=== PATIENT | male | born 1970 | race Caucasian/White ===

== ENCOUNTER 2017-03-03 13:26 | Emergency (ER) | payer BC, OTHER ==
[~2017-03-03] VITALS: Ht 172.7 cm; Wt 138.3 kg
[~2017-03-03 13:26] MED LIST: IBUP200C PO
[2017-03-03] MEDS ORDERED: ONDANSETRON 2MG/ML, 2ML ONE (13:43)
[2017-03-03] MEDS ORDERED: HYDROmorphone 1 MG/ML, 1ML ONE (13:43)
[2017-03-03] MEDS ORDERED: KETOROLAC 30 MG/1 ML ONE (13:54)
[2017-03-03] MEDS ORDERED: HYDROmorphone 1 MG/ML, 1ML IV ONE (14:00)
[2017-03-03] MEDS ORDERED: KETOROLAC 30 MG/1 ML IVPush ONE (14:00)
[2017-03-03 14:04] VITALS: BP 127/91
== END 2017-03-03 14:43 | disposition home or self-care (01) ==
LOC: ED 14:20
DX: S43.005A Unspecified dislocation of left shoulder joint, initial encounter (principal); W19.XXXA Unspecified fall, initial encounter; Y93.89 Activity, other specified; Y92.009 Unspecified place in unspecified non-institutional (private) residence as the place of occurrence of the external cause; Y99.8 Other external cause status
CPT/HCPCS: 23650; 73020; 96374; 96375; 99284; J1170; J1885

== ENCOUNTER 2018-12-10 18:42 | Emergency (ER) | payer BC ==
[~2018-12-10 18:42] MED LIST changes: +IBUP-1623 PO; -IBUP200C PO
--- NOTE | 2018-12-10 19:01 | NUR ---
NO ANSWER WHEN CALLED FROM [facility]
--- NOTE | 2018-12-10 19:22 | NUR ---
NIL WHEN CALLED FOR TRIAGE.
--- NOTE | 2018-12-10 19:41 | NUR ---
NIL X 3 WHEN CALLED FOR TRIAGE.
== END 2018-12-10 19:42 | disposition left against medical advice (07) ==
LOC: ED 19:36
DX: M54.5 Low back pain (principal); Z53.21 Procedure and treatment not carried out due to patient leaving prior to being seen by health care provider

== ENCOUNTER 2021-02-17 19:47 | Emergency (ER) | payer BC ==
[~2021-02-17] VITALS: Ht 172.7 cm; Wt 129.6 kg
[2021-02-17] MEDS ORDERED: ONDANSETRON 2MG/ML, 2ML ONE (20:19)
[2021-02-17] MEDS ORDERED: MORPHINE SULFATE 4 MG/ML, 1ML ONE (20:19)
[2021-02-17] MEDS ORDERED: ONDANSETRON 2MG/ML, 2ML IVPush ONE (20:30)
[2021-02-17] MEDS ORDERED: morphine SULFATE 10 MG/ML, 1ML IVPush ONE (21:00)
[2021-02-17 21:06] LABS: BASOPHILS % (AUTO) 0 % (0-1); EOSINOPHILS % (AUTO) 1 % (1-7); LYMPHOCYTES % (AUTO) 18 % (22-44); MEAN CORPUSCULAR HGB CONC 33.5 g/dL (33.2-36.2); MEAN PLATELET VOLUME 10.5 fL (7.4-10.4); MONOCYTES % (AUTO) 6 % (2-9); NEUTROPHILS % (AUTO) 75 % (42-75); PLATELET COUNT 203 x10^3/uL (130-400); RED BLOOD COUNT 4.45 x10^6/uL (4.38-5.82); RED CELL DISTRIBUTION WIDTH 13.4 % (9.4-14.8)
--- NOTE | 2021-02-17 21:11 | NUR ---
REPORT FROM TYLER RUIZ
[2021-02-17 21:15] LABS: ALBUMIN 3.4 g/dL (3.4-5.0); ANION GAP 5 mmol/L (5-15); CALCIUM 8.3 mg/dL (8.5-10.1); CHLORIDE 107 mmol/L (98-107)
[2021-02-17 21:21] LABS: ALANINE AMINOTRANSFERASE 37 U/L (12-78); ALKALINE PHOSPHATASE 60 U/L (45-117); BILIRUBIN,TOTAL 0.4 mg/dL (0.2-1.0); CREATININE 0.77 mg/dL (0.7-1.3); TOTAL PROTEIN 7.5 g/dL (6.4-8.2); TROPONIN I < 0.015 ng/mL (0.000-0.045)
[2021-02-17 21:57] VITALS: BP 158/98
== END 2021-02-17 21:59 | disposition home or self-care (01) ==
LOC: ED 21:50
DX: R07.89 Other chest pain (principal); I10 Essential (primary) hypertension; R11.0 Nausea; R94.31 Abnormal electrocardiogram [ECG] [EKG]
CPT/HCPCS: 36415; 71045; 80053; 83735; 83880; 84484; 85025; 93005; 96374; 96375; 99285; J2270; J2405

== ENCOUNTER 2021-02-18 00:30 | Emergency (ER) | payer BC ==
[2021-02-18 00:35] VITALS: BP 155/99
[2021-02-18] MEDS ORDERED: ONDANSETRON ODT 4 MG ONE (01:24)
[2021-02-18] MEDS ORDERED: OXYcodone/APAP 10/325MG TABLET ONE (01:25)
[2021-02-18] MEDS ORDERED: OXYcodone/APAP 10/325MG TABLET PO ONE (01:30)
[2021-02-18] MEDS ORDERED: ONDANSETRON ODT 8 MG PO ONE (01:30)
[2021-02-18] MEDS ORDERED: ONDANSETRON ODT 8 MG ONE (01:32)
[2021-02-18] MEDS ORDERED: IBUPROFEN 800 MG TABLET ONE (02:23)
[2021-02-18] MEDS ORDERED: IBUPROFEN 800 MG TABLET PO ONE (02:30)
== END 2021-02-18 02:56 | disposition home or self-care (01) ==
LOC: ED 02:47
DX: S06.0X0A Concussion without loss of consciousness, initial encounter (principal); S00.03XA Contusion of scalp, initial encounter; I10 Essential (primary) hypertension; Y04.8XXA Assault by other bodily force, initial encounter; Y93.89 Activity, other specified; Y92.009 Unspecified place in unspecified non-institutional (private) residence as the place of occurrence of the external cause; Y99.8 Other external cause status
CPT/HCPCS: 70450; 99284; Q0162

== ENCOUNTER 2021-03-09 04:38 | Inpatient (IN) | payer BC, OTHER ==
[~2021-03-09] VITALS: Ht 172.7 cm; Wt 136.4 kg
--- NOTE | 2021-03-09 04:44 | NUR ---
EKG IN TRIAGE
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
[2021-03-09] MEDS ORDERED: ASPIRIN 81 MG TABLET CHEW ONE (05:36)
[2021-03-09] MEDS ORDERED: MORPHINE SULFATE 4 MG/ML, 1ML ONE (05:36)
[2021-03-09] MEDS ORDERED: ONDANSETRON 2MG/ML, 2ML ONE (05:36)
[2021-03-09] MEDS: MORPHINE SULFATE 4 MG/ML, 1ML IVPush PRN ×2 (05:42→15:25)
[2021-03-09] MEDS ORDERED: ASPIRIN 81 MG TABLET CHEW PO ONE (06:00)
[2021-03-09] MEDS ORDERED: SODIUM CHLORIDE FLUSH 10ML SYR IVF ONE (06:00)
[2021-03-09] MEDS ORDERED: ONDANSETRON 2MG/ML, 2ML IVPush ONE (06:00)
[2021-03-09] MEDS ORDERED: SODIUM CHLORIDE 0.9% 1,000ML IVBOLUS ONE (06:00)
[2021-03-09 06:21] LABS: BASOPHILS % (AUTO) 0 % (0-1); EOSINOPHILS % (AUTO) 2 % (1-7); LYMPHOCYTES % (AUTO) 22 % (22-44); MEAN CORPUSCULAR HGB CONC 34.1 g/dL (33.2-36.2); MONOCYTES % (AUTO) 8 % (2-9); NEUTROPHILS % (AUTO) 68 % (42-75); PLATELET COUNT 224 x10^3/uL (130-400); RED BLOOD COUNT 4.56 x10^6/uL (4.38-5.82); RED CELL DISTRIBUTION WIDTH 13.5 % (9.4-14.8)
[2021-03-09 06:25] LABS: ALANINE AMINOTRANSFERASE 27 U/L (12-78); ALBUMIN 3.2 g/dL (3.4-5.0); CALCIUM 8.3 mg/dL (8.5-10.1)
[2021-03-09 06:29] LABS: ALKALINE PHOSPHATASE 65 U/L (45-117); ANION GAP 7 mmol/L (5-15); BILIRUBIN,TOTAL 0.4 mg/dL (0.2-1.0); CHLORIDE 106 mmol/L (98-107); TOTAL PROTEIN 7.5 g/dL (6.4-8.2); TROPONIN I < 0.015 ng/mL (0.000-0.045)
--- NOTE | 2021-03-09 06:58 | NUR ---
report to maicol RUIZ
--- NOTE | 2021-03-09 06:58 | NUR ---
REPORT FROM RICHY, ASSUME CARE OF PT AT THIS TIME.
--- NOTE | 2021-03-09 07:29 | NUR ---
PT AWARE OF ADMIT. PT STATES CP RESOLVED, NOW C/O LOPES RATED /10. PT TOOK 600MG IBUPROFEN PRIOR TO ARRIVAL. REQUEST FOR TYLENOL TO ERP.
[2021-03-09] MEDS ORDERED: ONDANSETRON 2MG/ML, 2ML IVPush PRN (08:00)
[2021-03-09] MEDS ORDERED: POTASSIUM CHLORIDE 20 MEQ TAB.ER.PRT PO ONE (08:00)
[2021-03-09] MEDS ORDERED: CARVEDILOL 3.125 MG TABLET PO SCH (08:00)
[2021-03-09] MEDS ORDERED: ONDANSETRON ODT 4 MG PO PRN (08:00)
[2021-03-09 08:30] LABS: TROPONIN I < 0.015 ng/mL (0.000-0.045)
[2021-03-09 09:30] VITALS: BP 147/101
[2021-03-09] MEDS: HEPARIN 5,000 UNITS/ML, 1ML SQ SCH ×2 (09:42→18:22)
[2021-03-09] MEDS: NS + 20MEQ KCL 1,000 ML IV SCH (11:58)
[2021-03-09 15:00] VITALS: BP 161/101
[2021-03-09 15:20] LABS: TROPONIN I < 0.015 ng/mL (0.000-0.045)
[2021-03-09] MEDS ORDERED: CARVEDILOL 3.125 MG TABLET PO ONE (15:30)
[2021-03-09] MEDS ORDERED: CARV6.2512 PO (15:34)
[2021-03-09] MEDS: IBUPROFEN 200 MG TABLET PO PRN (15:56)
[2021-03-09] MEDS: CARVEDILOL 6.25 MG TABLET PO SCH (18:22)
[2021-03-09 19:07] VITALS: BP 138/93
[2021-03-09] MEDS: ACETAMINOPHEN 325 MG TABLET PO PRN (20:48)
[2021-03-09] MEDS: KETOROLAC 30 MG/1 ML IV PRN (20:48)
[2021-03-10] VITALS (7 sets, daily range): BP systolic 113–154; BP diastolic 73–100
[2021-03-10] MEDS: IBUPROFEN 200 MG TABLET PO PRN (00:51)
[2021-03-10] MEDS: HEPARIN 5,000 UNITS/ML, 1ML SQ SCH ×4 (00:51→23:39)
[2021-03-10] MEDS: NS + 20MEQ KCL 1,000 ML IV SCH ×2 (03:27→13:37)
[2021-03-10 05:41] LABS: BASOPHILS % (AUTO) 1 % (0-1); EOSINOPHILS % (AUTO) 5 % (1-7); LYMPHOCYTES % (AUTO) 32 % (22-44); MEAN CORPUSCULAR HEMOGLOBIN 30.9 pg (27.5-34.5); MEAN CORPUSCULAR HGB CONC 33.5 g/dL (33.2-36.2); MEAN PLATELET VOLUME 10.1 fL (7.4-10.4); MONOCYTES % (AUTO) 8 % (2-9); NEUTROPHILS % (AUTO) 55 % (42-75); PLATELET COUNT 211 x10^3/uL (130-400); RED BLOOD COUNT 4.34 x10^6/uL (4.38-5.82); RED CELL DISTRIBUTION WIDTH 13.7 % (9.4-14.8)
[2021-03-10 05:52] LABS: ANION GAP 5 mmol/L (5-15); CALCIUM 7.6 mg/dL (8.5-10.1); CHLORIDE 107 mmol/L (98-107); CHOLESTEROL, TOTAL 150 mg/dL (140-239); CREATININE 0.79 mg/dL (0.7-1.3); TRIGLYCERIDES 115 mg/dL (50-200); VLDL CHOLESTEROL 23 mg/dL (0-25)
[2021-03-10 05:54] LABS: HDL CHOL % 20 % (26-37); HDL CHOLESTEROL (DIRECT) 30 mg/dL (40-60); LDL CHOLESTEROL,CALCULATED 97 mg/dL (54-169); LDL/HDL RATIO 3.2 (0.5-3.0)
[2021-03-10] MEDS: KETOROLAC 30 MG/1 ML IV PRN ×3 (06:06→22:24)
[2021-03-10] MEDS: CARVEDILOL 6.25 MG TABLET PO SCH ×2 (06:06→18:02)
[2021-03-10] MEDS: ASPIRIN 325 MG TABLET PO SCH (06:06)
[2021-03-10] MEDS: ACETAMINOPHEN 325 MG TABLET PO PRN ×3 (08:28→23:39)
[2021-03-10] MEDS: LISINOPRIL 20 MG TABLET PO SCH (13:37)
[2021-03-11 01:29] VITALS: BP 111/69
[2021-03-11] MEDS: NS + 20MEQ KCL 1,000 ML IV SCH ×2 (01:29→17:34)
[2021-03-11] MEDS: ACETAMINOPHEN 325 MG TABLET PO PRN (06:09)
[2021-03-11] MEDS: ASPIRIN 325 MG TABLET PO SCH (06:09)
[2021-03-11] MEDS: CARVEDILOL 6.25 MG TABLET PO SCH ×2 (06:09→17:26)
[2021-03-11 07:08] VITALS: BP 121/78
[2021-03-11] MEDS ORDERED: REGADENOSON 0.4 MG/5 ML SYRINGE ONE (08:29)
[2021-03-11] MEDS: LISINOPRIL 20 MG TABLET PO SCH (10:51)
[2021-03-11] MEDS: HEPARIN 5,000 UNITS/ML, 1ML SQ SCH ×2 (10:51→17:26)
[2021-03-11] MEDS: IBUPROFEN 200 MG TABLET PO PRN ×2 (10:51→19:37)
[2021-03-11 14:30] VITALS: BP 122/80
[2021-03-11] MEDS: KETOROLAC 30 MG/1 ML IV PRN (17:26)
[2021-03-11 19:37] VITALS: BP 114/74
[2021-03-12] MEDS: HEPARIN 5,000 UNITS/ML, 1ML SQ SCH ×2 (02:24→10:00)
[2021-03-12 02:28] VITALS: BP 113/73
[2021-03-12] MEDS: KETOROLAC 30 MG/1 ML IV PRN ×2 (03:51→13:42)
[2021-03-12] MEDS: ASPIRIN 325 MG TABLET PO SCH (06:09)
[2021-03-12] MEDS: CARVEDILOL 6.25 MG TABLET PO SCH (06:09)
[2021-03-12 08:30] VITALS: BP 116/77
[2021-03-12] MEDS: NS + 20MEQ KCL 1,000 ML IV SCH (08:42)
[2021-03-12] MEDS: LISINOPRIL 20 MG TABLET PO SCH (10:00)
[2021-03-12] MEDS: IBUPROFEN 200 MG TABLET PO PRN (13:42)
[2021-03-12 14:00] VITALS: BP 154/92
[2021-03-12] MEDS ORDERED: ATOR-2 PO (16:40)
[2021-03-12] MEDS ORDERED: ASPI325T17 PO (16:40)
[2021-03-12] MEDS ORDERED: LISI-170 PO (16:40)
[2021-03-12] MEDS ORDERED: ATORVASTATIN 80 MG TABLET PO SCH (21:00)
== END 2021-03-12 17:55 | disposition home or self-care (01) | DRG 303 ==
LOC: ED 05:09 → INTOOBSV 07:06 → EDIP 07:06 → OBSVTOIN 07:06 → 5SO 08:15
PROVIDERS: ADMIT Internal Medicine; ATTEND Internal Medicine
DX: I25.119 Atherosclerotic heart disease of native coronary artery with unspecified angina pectoris (principal); Z68.42 Body mass index [BMI] 45.0-49.9, adult; D63.8 Anemia in other chronic diseases classified elsewhere; E66.01 Morbid (severe) obesity due to excess calories; E87.6 Hypokalemia; F12.10 Cannabis abuse, uncomplicated; I10 Essential (primary) hypertension; G89.29 Other chronic pain; Z20.822 Contact with and (suspected) exposure to COVID-19; M54.9 Dorsalgia, unspecified; M25.512 Pain in left shoulder; R51.9 Headache, unspecified; Z71.51 Drug abuse counseling and surveillance of drug abuser
CPT/HCPCS: 36415; 70450; 71045; 78452; 80048; 80053; 80061; 83690; 83735; 84484; 85025; 93005; 93017; 96361; 96374; G0378; J1644; J1885; J2405; J2785; J3480; Q0162; U0005; A9502; J2270; J7030; U0003

== ENCOUNTER 2021-03-16 05:10 | Emergency (ER) | payer OTHER ==
[~2021-03-16] VITALS: Ht 172.7 cm; Wt 129.2 kg
[~2021-03-16 05:10] MED LIST changes: +ASPI325T17 PO; +ATOR-2 PO; +CARV6.2512 PO; +LISI-170 PO
[2021-03-16] MEDS ORDERED: MORPHINE SULFATE 4 MG/ML, 1ML IVPush PRN (05:30)
[2021-03-16] MEDS ORDERED: SODIUM CHLORIDE 0.9%, 500ML IVBOLUS ONE (05:30)
[2021-03-16] MEDS ORDERED: MORPHINE SULFATE 4 MG/ML, 1ML ONE (05:46)
[2021-03-16 06:02] LABS: BASOPHILS % (AUTO) 1 % (0-1); EOSINOPHILS % (AUTO) 1 % (1-7); LYMPHOCYTES % (AUTO) 13 % (22-44); MEAN CORPUSCULAR HEMOGLOBIN 30.6 pg (27.5-34.5); MEAN CORPUSCULAR HGB CONC 33.5 g/dL (33.2-36.2); MEAN PLATELET VOLUME 10.2 fL (7.4-10.4); MONOCYTES % (AUTO) 8 % (2-9); NEUTROPHILS % (AUTO) 77 % (42-75); PLATELET COUNT 196 x10^3/uL (130-400); RED BLOOD COUNT 4.58 x10^6/uL (4.38-5.82); RED CELL DISTRIBUTION WIDTH 13.5 % (9.4-14.8)
[2021-03-16 06:08] LABS: MICROSCOPIC NOT IND
[2021-03-16 06:18] LABS: ALBUMIN 3.2 g/dL (3.4-5.0); ANION GAP 8 mmol/L (5-15); CALCIUM 8.8 mg/dL (8.5-10.1); CHLORIDE 105 mmol/L (98-107); CREATININE 0.95 mg/dL (0.7-1.3)
[2021-03-16 06:21] LABS: ALANINE AMINOTRANSFERASE 66 U/L (12-78); ALKALINE PHOSPHATASE 77 U/L (45-117); BILIRUBIN,TOTAL 0.4 mg/dL (0.2-1.0); TOTAL PROTEIN 7.3 g/dL (6.4-8.2); TROPONIN I < 0.015 ng/mL (0.000-0.045)
[2021-03-16 07:08] VITALS: BP 154/107
--- NOTE | 2021-03-16 07:08 | NUR ---
ASSUMING CARE OF PT AFTER BEDSIDE REPORT. VSS. NADN. DR. CORTES TO BEDSIDE TO DISCUSS RESULTS.
[2021-03-16] MEDS ORDERED: AMOX1TAB64 PO (13:06)
[2021-03-16] MEDS ORDERED: HYDR-3237 PO (13:08)
== END 2021-03-16 07:42 | disposition home or self-care (01) ==
LOC: ED 06:58
DX: K57.32 Diverticulitis of large intestine without perforation or abscess without bleeding (principal); R94.31 Abnormal electrocardiogram [ECG] [EKG]
CPT/HCPCS: 36415; 74176; 80053; 81003; 84484; 85025; 93005; 96361; 96374; 99285; J2270; J7040

== ENCOUNTER 2021-03-16 10:25 | Day surgery (SDC) | payer OTHER ==
[~2021-03-16] VITALS: Ht 172.7 cm; Wt 129.0 kg
[2021-03-16] MEDS ORDERED: AMOX1TAB64 PO (13:06)
[2021-03-16] MEDS ORDERED: HYDR-3237 PO (13:08)
[2021-03-16 13:29] VITALS: BP 129/86
[2021-03-16] MEDS ORDERED: MIDAZOLAM 1 MG/ML, 5ML ONE (13:42)
[2021-03-16] MEDS ORDERED: FENTANYL PF 100 MCG/2ML ONE (13:42)
[2021-03-16] MEDS ORDERED: BIVALIRUDIN 250 MG ONE (13:43)
[2021-03-16] MEDS ORDERED: VERAPAMIL 2.5 MG/ML, 2ML ONE (13:43)
[2021-03-16] MEDS ORDERED: HEPARIN 1,000 UNITS/ML, 10ML ONE (13:43)
[2021-03-16] MEDS ORDERED: LIDOCAINE-MPF 1%, 5ML ONE (13:43)
[2021-03-16] MEDS ORDERED: SODIUM CHLORIDE 0.9% 1,000 ML IV SCH (14:30)
== END 2021-03-16 16:08 | disposition home or self-care (01) ==
LOC: CACL 10:25
PROVIDERS: ATTEND Internal Medicine Cardiovascular Disease
DX: R94.39 Abnormal result of other cardiovascular function study (principal); I10 Essential (primary) hypertension; F12.10 Cannabis abuse, uncomplicated; E66.9 Obesity, unspecified; Z79.1 Long term (current) use of non-steroidal anti-inflammatories (NSAID); Z79.899 Other long term (current) drug therapy
CPT/HCPCS: 93458; 99156; C1769; C1894; J1644; J2250; J3010; Q9967; J0583

== ENCOUNTER 2021-04-17 10:48 | Emergency (ER) | payer OTHER ==
[~2021-04-17] VITALS: Ht 172.7 cm; Wt 128.4 kg
[~2021-04-17 10:48] MED LIST changes: +AMOX1TAB64 PO; +HYDR-3237 PO
--- NOTE | 2021-04-17 11:48 | NUR ---
B[employer]: PT TO ROOM FROM LOBBY VIA W/C
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
[2021-04-17 13:00] VITALS: BP 118/82
--- NOTE | 2021-04-17 13:07 | NUR ---
PT to CT
--- NOTE | 2021-04-17 13:36 | NUR ---
discharge instructions reviewed.
== END 2021-04-17 13:54 | disposition home or self-care (01) ==
LOC: ED 13:35
DX: S09.90XA Unspecified injury of head, initial encounter (principal); I10 Essential (primary) hypertension; Y04.8XXA Assault by other bodily force, initial encounter; Y93.89 Activity, other specified; Y92.89 Other specified places as the place of occurrence of the external cause; Y99.8 Other external cause status
CPT/HCPCS: 70450; 99284